=== PATIENT | female | born 1955 | race African-American/Black ===

== ENCOUNTER 2018-05-09 20:56 | Emergency (ER) | payer OTHER ==
[~2018-05-09] VITALS: Ht 170.2 cm; Wt 72.7 kg
[2018-05-09 21:03] VITALS: Ht 170.2 cm; Wt 72.7 kg
[2018-05-10] MEDS ORDERED: NITROGLYCERIN (SL) 0.4 MG TAB SL ONE
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
[2018-05-10 03:07] VITALS: BP 127/78; PULSE 89; RESP 19
== END 2018-05-10 03:07 | disposition short-term general hospital (02) ==
LOC: E/R 20:56
DX: R07.89 Other chest pain (principal); I10 Essential (primary) hypertension
CPT/HCPCS: 36415; 71045; 80048; 84484; 85025; 93005